=== PATIENT | female | born 2000 | race Caucasian/White ===

== ENCOUNTER 2021-05-02 23:15 | Emergency (ER) | payer BC ==
--- NOTE | 2021-05-02 23:37 | EDM.PDOC ---
ED HPI GENERAL MEDICAL PROBLEM - General Chief Complaint: Lower Extremity Injury/Pain Stated Complaint: FOOT INJURY Time Seen by Provider: 05/02/21 23:20 Source of Information: Reports: Patient - History of Present Illness INITIAL COMMENTS - FREE TEXT/NARRATIVE: 20-year-old lady tripped at home and stubbed her left foot fifth digit tonight. She had immediate and significant pain. She is swelling with a small scrape and some bleeding. She has difficulty moving and feeling the toe because it is so swollen it feels numb and is too painful to move. She has no other acute concerns and specifically denies fever, chills, flulike symptoms, chest pain, shortness of breath, nausea, vomiting, diarrhea, change in bowel or bladder habits. She did have some nausea associated with the pain after initially stubbing her toe. Left Foot Pain Score (Numeric/FACES): 10 - Related Data Allergies Allergy/AdvReac Type Severity Reaction Status Date / Time No Known Allergies Allergy Verified 01/01/18 17:32 Home Meds: Home Meds NK [No Known Home Meds] 01/01/18 [History] Review of Systems - Review of Systems Review Of Systems: See Below Constitutional: Reports: No Symptoms Eyes: Reports: No Symptoms Ears: Reports: No Symptoms Nose: Reports: No Symptoms Mouth/Throat: Reports: No Symptoms Respiratory: Reports: No Symptoms Cardiovascular: Reports: No Symptoms GI/Abdominal: Reports: No Symptoms Genitourinary: Reports: No Symptoms Musculoskeletal: Reports: Other (Pain of the fifth digit of the left foot) Skin: Reports: Other (Small abrasion on the dorsal surface of the left foot fifth digit) Neurological: Reports: No Symptoms Psychiatric: Reports: No Symptoms ED EXAM, GENERAL - Physical Exam Exam: See Below Exam Limited By: No Limitations General Appearance: Alert, No Apparent Distress, Anxious Eye Exam: Bilateral Eye: EOMI Head: Atraumatic, Normocephalic Neck: Normal Inspection Respiratory/Chest: No Respiratory Distress, Lungs Clear Cardiovascular: Normal Peripheral Pulses, Regular Rate, Rhythm Peripheral Pulses: 2+: Radial (L), Radial (R), Dorsalis Pedis (L), Dorsalis Pedis (R) GI/Abdominal: Normal Bowel Sounds, Soft, Non-Tender Back Exam: Normal Inspection Extremities: Other (Swelling, erythema of the left foot fifth digit with a very small abrasion on the dorsal surface.) Neurological: Alert, Oriented, CN II-XII Intact, Normal Cognition Psychiatric: Anxious Skin Exam: Wound/Incision Course - Vital Signs Text/Narrative:: You have x-ray shows a fracture of the medial fifth proximal phalange at the metatarsal phalangeal joint of the fifth digit of the left toe. Last Recorded V/S: Last Vital Signs Temp 37.4 C 05/02/21 23:19 Pulse 93 05/02/21 23:19 Resp 16 05/02/21 23:19 BP 134/74 05/02/21 23:19 Pulse Ox 100 05/02/21 23:19 - Orders/Labs/Meds Orders: Active Orders 24 hr Category Date Time Status Toes Fifth Digit Lt T4 [CR] Stat Exams 05/02/21 23:29 Taken Departure - Departure Time of Disposition: 00:14 Disposition: Home, Self-Care 01 Condition: Good Clinical Impression: Fracture of toe of left foot - Discharge Information *PRESCRIPTION DRUG MONITORING PROGRAM REVIEWED*: Not Applicable *COPY OF PRESCRIPTION DRUG MONITORING REPORT IN PATIENT CALVIN: Not Applicable Instructions: Toe Fracture, [id number] Referrals: Zulma Mota [employer] ATTENDANT [Primary Care Provider] - Forms: ED Department Discharge Additional Instructions: I informed the patient of the fracture and showed her the x-ray showing fracture with a dislocated piece of bone at the medial, proximal phalange of the fifth digit of the left foot. Informed her that she will need to follow-up with orthopedic surgery and that she should call them directly and/or call her primary care physician and ask for a referral. She will be given a walking boot and sent home at this time. I advised her to rest, ice, elevate, alternate Tylenol and ibuprofen for pain control. Advised her to avoid putting weight/stress on the toe. I strongly encouraged her to follow-up with orthopedic surgery. Sepsis Event Note (ED) - Focused Exam Vital Signs: Vital Signs Temp Pulse Resp BP Pulse Ox 05/02/21 23:19 37.4 C 93 16 134/74 100 - My Orders Last 24 Hours: My Active Orders 05/02/21 23:29 Toes Fifth Digit Lt T4 [CR] Stat - Assessment/Plan Last 24 Hours: My Active Orders 05/02/21 23:29 Toes Fifth Digit Lt T4 [CR] Stat
--- NOTE | 2021-05-05 12:31 | CR ---
INDICATION: Pain and swelling, hit wall, while running in house. LEFT FIFTH TOE: Three views of the left fifth toe revealed a corner chip fracture off the medial aspect of the medial aspect of the proximal metaphysis of the proximal phalanx of the fifth toe, with very slight medial offset of that fracture fragment at its proximal aspect, producing some minimal rotation. There is some minimal offset also. Soft tissue swelling overlying the fifth metatarsophalangeal joint is noted. IMPRESSION: Fifth toe fracture with adequate position and alignment. MTDD
== END 2021-05-03 00:23 | disposition home or self-care (01) ==
LOC: FB.ED 23:15
DX: S92.512A Displaced fracture of proximal phalanx of left lesser toe(s), initial encounter for closed fracture (principal); W18.40XA Slipping, tripping and stumbling without falling, unspecified, initial encounter; Y93.02 Activity, running
CPT/HCPCS: 73660-T4; 99283